=== PATIENT | male | born 1955 | race Caucasian/White ===

== ENCOUNTER 2018-07-30 20:39 | Inpatient (IN) | payer OTHER ==
[~2018-07-30] VITALS: Ht 172.7 cm; Wt 58.2 kg
[2018-07-30] MEDS ORDERED: LOSA50TA88 PO (20:52)
[2018-07-30] MEDS ORDERED: TRAM50TA2 PO (20:52)
[2018-07-30] MEDS ORDERED: GABA-845 PO (20:52)
[2018-07-30] MEDS ORDERED: MIRT1TAB PO (20:52)
--- NOTE | 2018-07-30 23:27 | REPVR ---
EXAM: CT Head Without Contrast EXAM DATE/TIME: 07/30/2018 10:49 PM CLINICAL HISTORY: 62 years old, male; Signs and symptoms; Altered mental status/memory loss; Additional info: Altered, weak TECHNIQUE: Axial computed tomography images of the head/brain without contrast. All CT scans at this facility use at least one of these dose optimization techniques: automated exposure control; mA and/or kV adjustment per patient size (includes targeted exams where dose is matched to clinical indication); or iterative reconstruction. COMPARISON: No relevant prior studies available. FINDINGS: Brain: Normal. No hemorrhage. No significant white matter disease. No edema. Ventricles: Normal. No ventriculomegaly. Bones/joints: Unremarkable. No acute fracture. Sinuses: Visualized sinuses are unremarkable. No acute sinusitis. Mastoid air cells: Visualized mastoid air cells are unremarkable. No mastoid effusion. Soft tissues: Unremarkable. IMPRESSION: No acute intracranial abnormality. Electronically signed by: Kirill Velazco On 07/30/2018 23:27:29 PM
--- NOTE | 2018-07-30 23:28 | REPVR ---
EXAM: XR Chest, 2 Views EXAM DATE/TIME: 07/30/2018 10:17 PM CLINICAL HISTORY: 62 years old, male; Signs and symptoms; Other: Altered mental status TECHNIQUE: XR of the chest, 2 views. COMPARISON: No relevant prior studies available. FINDINGS: Lungs: Bilateral infiltrates in the mid and lower lung zones may represent atelectasis. Clinical correlation to exclude acute infiltrate suggested. Pleural space: Unremarkable. No pleural effusion. No pneumothorax. Heart/Mediastinum: Unremarkable. No cardiomegaly. Bones/joints: Unremarkable. IMPRESSION: Bilateral infiltrates in the mid and lower lung zones may represent atelectasis. Clinical correlation to exclude acute infiltrate suggested. Electronically signed by: Kirill Velazco On 07/30/2018 23:28:04 PM
[2018-07-31] MEDS: NS 1,000 ML IV SCH ×2 (00:52→04:57)
[2018-07-31 00:56] LABS: BASO # 0.1 10^3/uL (0.0-0.2); BASO % 0.5 % (0.0-1.0); EOS # 0.1 10^3/uL (0.0-0.50); EOS % 0.6 % (0.0-3.0); HEMATOCRIT 53.8 % (42.0-52.0); HEMOGLOBIN 18.7 g/dl (13.5-17.5); LYMPH # 1.9 10^3/uL (1.5-4.5); LYMPH % 12.2 % (24.0-44.0); MEAN CORPUSCULAR HEMOGLOBIN 29.1 pg (27.0-33.0); MEAN CORPUSCULAR HGB CONC 34.8 g/dl (32.0-36.5); MEAN CORPUSCULAR VOLUME 83.7 fl (80.0-96.0); MONO # 1.5 10^3/uL (0.0-0.8); MONO % 9.4 % (0.0-5.0); NEUTROPHILS % 76.3 % (36.0-66.0); PLATELET COUNT, AUTOMATED 297 10^3/uL (150-450); RED BLOOD COUNT 6.43 10^6/uL (4.30-6.10); WHITE BLOOD COUNT 15.7 10^3/uL (4.0-10.0)
[2018-07-31 01:39] LABS: ALBUMIN 2.2 GM/DL (3.2-5.2); ALT/SGPT 76 U/L (12-78); BILIRUBIN,DIRECT 27.3 MG/DL (0.0-0.2); BLOOD UREA NITROGEN 56 MG/DL (7-18); CALCIUM LEVEL 11.5 MG/DL (8.8-10.2); CARBON DIOXIDE LEVEL 21 MEQ/L (21-32); CHLORIDE LEVEL 105 MEQ/L (98-107); CK-MB VALUE MASS < 1.0 NG/ML (<3.6); CPK CREATINE PHOSPHOKINASE 46 U/L (39-308); CREATININE FOR GFR 2.05 MG/DL (0.70-1.30); GLUCOSE, FASTING 75 MG/DL (70-100); MB/CK RELATIVE INDEX 2.17 (< OR =4); POTASSIUM SERUM 4.8 MEQ/L (3.5-5.1); SODIUM LEVEL 136 MEQ/L (136-145); TOTAL PROTEIN 6.4 GM/DL (6.4-8.2); TROPONIN I < 0.02 NG/ML (< 0.10)
[2018-07-31 01:57] LABS: BILIRUBIN,TOTAL 29.8 MG/DL (0.2-1.0)
[2018-07-31 02:21] LABS: INR 1.84; PARTIAL THROMBOPLASTIN TIME 36.9 SECONDS (25.4-37.6); PROTHROMBIN TIME 21.6 SECONDS (12.1-14.4)
--- NOTE | 2018-07-31 03:24 | REPVR ---
EXAM: CT Abdomen and Pelvis Without Contrast EXAM DATE/TIME: 07/31/2018 1:53 AM CLINICAL HISTORY: 62 years old, male; AMS, cirrosis, elevated bilirubins TECHNIQUE: Axial computed tomography images of the abdomen and pelvis without contrast. All CT scans at this facility use at least one of these dose optimization techniques: automated exposure control; mA and/or kV adjustment per patient size (includes targeted exams where dose is matched to clinical indication); or iterative reconstruction. Coronal and sagittal reformatted images were created and reviewed. COMPARISON: CR - Chest, 2 view PA, Lat 07/30/2018 10:31:45 PM FINDINGS: Lower thorax: There is atelectasis or consolidation in the right lower lobe. Atelectatic changes are noted in the right middle lobe, lingula, and left lower lobe. No cardiomegaly or pericardial effusion is noted. ABDOMEN: Liver: The liver has a nodular contour, which can be seen with cirrhosis. The liver is enlarged and measures 16.9 cm in craniocaudal dimension at the level of the right midclavicular line. No liver mass is identified with this unenhanced technique. There are several calcified granulomas in the liver. Gallbladder and bile ducts: There is high attenuation material in the gallbladder, which may represent milk of calcium bile. The wall of the gallbladder appears thickened and there is pericholecystic fluid. No intrahepatic or extrahepatic biliary ductal dilation is identified. Pancreas: Unremarkable. No ductal dilation. Spleen: There is several calcified granulomas in the spleen. The spleen is enlarged and measures 14 cm. No splenic mass is identified on this unenhanced technique. Adrenals: There is a 17 mm left adrenal nodule that measures 41 Hounsfield units (image 44 of the axial series 201). The right adrenal gland is normal. Kidneys and ureters: The kidneys are unremarkable. No renal lesion is identified. No calculi are seen in the kidneys or ureters. There is no hydronephrosis or hydroureter. Stomach and bowel: There is thickening of the wall of the ascending colon. No diverticulitis, bowel obstruction, pneumatosis intestinalis, volvulus, or intussusception is noted. Appendix: Normal. There is no evidence for appendicitis. PELVIS: Bladder: There is thickening of the wall of the urinary bladder. No stones are noted in the urinary bladder. Reproductive: There is a punctate calcification in the prostate gland. The seminal vesicles are unremarkable. ABDOMEN and PELVIS: Intraperitoneal space: There is a small amount of ascites in the abdomen and pelvis. No intraperitoneal free air is noted. Bones/joints: The imaged bony structures are intact. There is no suspicious osteolytic or osteoblastic lesion. There are degenerative changes in the lumbar spine. Soft tissues: Unremarkable. Vasculature: The abdominal aorta is normal in caliber. There are moderate to severe atherosclerotic calcifications. There is recanalization of the umbilical vein. The main portal vein is dilated and measures 16 mm in diameter. Lymph nodes: Normal. No enlarged lymph nodes. IMPRESSION: 1. Thickening of the wall of the ascending colon, which may indicate a colitis or may be secondary to the decompressed state of this portion of the bowel. 2. Atelectasis or consolidation in the right lower lobe. 3. Nodular contour of the enlarged liver, which can be seen with cirrhosis. No liver lesion identified. 4. High attenuation material in the gallbladder, which may represent milk of calcium bile and there is gallbladder wall thickening and pericholecystic fluid. 5. Evidence for portal hypertension, with dilation of the main portal vein, splenomegaly, and recannulization of the umbilical vein. 6. 17 mm left adrenal nodule. Consider a [address] 7. Small amount of ascites in the abdomen or pelvis. COMMENT: Consistent with the [employer] Incidental Findings Committee Report (J Am Franny Radiol 2010): Unless the patients specific circumstances suggest otherwise, any liver lesion 0.5 cm or less, any cystic kidney lesion less than 1.0 cm, and/or any adrenal lesion 1.0 cm or less not otherwise characterized in this report as possessing suspicious or indeterminate imaging features is/are highly likely to be benign and do not require follow-up imaging or biopsy. Electronically signed by: Harlan Mcdaniel On 07/31/2018 03:23:49 AM
[2018-07-31] MEDS ORDERED: TIZA-208 PO (03:51)
[2018-07-31] MEDS ORDERED: HYDR-643 PO (03:51)
[2018-07-31] MEDS ORDERED: ONDANSETRON 4MG/2ML VIAL (J2405) IV PRN (04:00)
[2018-07-31] MEDS ORDERED: MORPHINE 4 MG/ML 1ML VIAL/SYRINGE (J2270) IV PRN (04:00)
[2018-07-31] MEDS ORDERED: LORazepam 2 MG/ML VIAL (J2060) IV PRN (04:00)
[2018-07-31] MEDS ORDERED: hydrOXYzine 10 MG TAB PO PRN (04:00)
--- NOTE | 2018-07-31 04:44 | HPEPDOC ---
[facility] Medical History & Physical Date of Admission Jul 31, 2018 Attending Physician: IMTIAZ CLEMENTS MD History and Physical CHIEF COMPLAINT: Altered Mental Status HISTORY OF PRESENT ILLNESS: Patient is a 62 year old male who was brought to the [facility] Emergency Department by his and children due to altered mental status and worsening balance. The patient was confused and sleeping during exam and history was taken from the patients who was present in the room. Mr. Hogan has a history significant for terminal liver cancer. He has been seen and evaluated in [place]. At the time the patient was considering treatment options however, he was ultimately sent home with comfort measures only. The patients states that her children became alarmed when the patient was showing increasing confusion and changes in his balance. They had then made the decision to take Mr. Hogan to the ED for further evaluation. In the ED the patient received a head CT which was normal, a chest X-ray which demonstrated bilateral infiltrates in the mid and lower lung zones likely representing atelectasis, and a CT abdomen and pelvis demonstrating atelectasis or consolidation of the right lower lobe, nodular contour of the liver, high attenuation material in the gallbladder, evidence of portal hypertension with dilation of the main portal vein, splenomegaly, and recannulization of the umbilical vei, a 17 mm left adrenal nodule, and a small amount of ascites. In the ER the patients had stated that the patient was comfort care only and that she would like to meet with hospice and discharge patient home tomorrow morning. Patient received IV fluids in the ER. Hospitalist service was consulted and patient was admitted for comfort measures only PAST MEDICAL HISTORY: 1. Liver Cancer 2. Hypertension 3. Depression/Anxiety PAST SURGICAL HISTORY: None SOCIAL HISTORY: Patient lives at home with his and kids. Patient's states that patient does not smoke or use tobacco products. She denies any history of IV drug abuse in her FAMILY HISTORY: Unknown ALLERGIES: Please see below. REVIEW OF SYSTEMS: Patient was confused and tired. A review of systems was not obtained HOME MEDICATIONS: Please see below. PHYSICAL EXAMINATION: VITAL SIGNS: Temperature 96.6, pulse 86, respiratory rate 19, blood pressure 114/61, pulse oximetry 98% on room air. GENERAL APPEARANCE: Patient is cachetic and older appearing then stated age. He is asleep but arousable to voice. He does appear confused and is noncooperative with exam. HEENT: Atrumatic normocephalic. Eyes are slightly jaundiced. Trachea is midline CARDIOVASCULAR: Normal S1, S2 regular rate and rhythm. No clicks, rubs, or murmurs LUNGS: Clear to auscultation bilaterally with slightly decreased breath sounds in the bases bilaterally. No wheezes, rhonci, rales noted ABDOMEN: Abdomen is firm. Nontender to palpation in all 4 quadrants although patient is altered during exam. Hepatosplenomegaly present. Venous hum present suggestive of portal hypertension. EXTREMITIES: No edema. Full and equal pulses in bilateral upper and lower extremities NEUROLOGICAL: Patient does not follow commands. No facial droop or muscular weakness noted LABORATORY DATA: See below. IMAGING: EXAM: CT Head Without Contrast EXAM DATE/TIME: 07/30/2018 10:49 PM CLINICAL HISTORY: 62 years old, male; Signs and symptoms; Altered mental status/memory loss; Additional info: Altered, weak TECHNIQUE: Axial computed tomography images of the head/brain without contrast. All CT scans at this facility use at least one of these dose optimization techniques: automated exposure control; mA and/or kV adjustment per patient size (includes targeted exams where dose is matched to clinical indication); or iterative reconstruction. COMPARISON: No relevant prior studies available. FINDINGS: Brain: Normal. No hemorrhage. No significant white matter disease. No edema. Ventricles: Normal. No ventriculomegaly. Bones/joints: Unremarkable. No acute fracture. Sinuses: Visualized sinuses are unremarkable. No acute sinusitis. Mastoid air cells: Visualized mastoid air cells are unremarkable. No mastoid effusion. Soft tissues: Unremarkable. IMPRESSION: No acute intracranial abnormality. Electronically signed by: Kirill Velazco On 07/30/2018 23:27:29 PM EXAM: XR Chest, 2 Views EXAM DATE/TIME: 07/30/2018 10:17 PM CLINICAL HISTORY: 62 years old, male; Signs and symptoms; Other: Altered mental status TECHNIQUE: XR of the chest, 2 views. COMPARISON: No relevant prior studies available. FINDINGS: Lungs: Bilateral infiltrates in the mid and lower lung zones may represent atelectasis. Clinical correlation to exclude acute infiltrate suggested. Pleural space: Unremarkable. No pleural effusion. No pneumothorax. Heart/Mediastinum: Unremarkable. No cardiomegaly. Bones/joints: Unremarkable. IMPRESSION: Bilateral infiltrates in the mid and lower lung zones may represent atelectasis. Clinical correlation to exclude acute infiltrate suggested. Electronically signed by: Kirill Velazco On 07/30/2018 23:28:04 PM FINDINGS: Lower thorax: There is atelectasis or consolidation in the right lower lobe. Atelectatic changes are noted in the right middle lobe, lingula, and left lower lobe. No cardiomegaly or pericardial effusion is noted. ABDOMEN: Liver: The liver has a nodular contour, which can be seen with cirrhosis. The liver is enlarged and measures 16.9 cm in craniocaudal dimension at the level of the right midclavicular line. No liver mass is identified with this unenhanced technique. There are several calcified granulomas in the liver. Gallbladder and bile ducts: There is high attenuation material in the gallbladder, which may represent milk of calcium bile. The wall of the gallbladder appears thickened and there is pericholecystic fluid. No intrahepatic or extrahepatic biliary ductal dilation is identified. Pancreas: Unremarkable. No ductal dilation. Spleen: There is several calcified granulomas in the spleen. The spleen is enlarged and measures 14 cm. No splenic mass is identified on this unenhanced technique. Adrenals: There is a 17 mm left adrenal nodule that measures 41 Hounsfield units (image 44 of the axial series 201). The right adrenal gland is normal. Kidneys and ureters: The kidneys are unremarkable. No renal lesion is identified. No calculi are seen in the kidneys or ureters. There is no hydronephrosis or hydroureter. Stomach and bowel: There is thickening of the wall of the ascending colon. No diverticulitis, bowel obstruction, pneumatosis intestinalis, volvulus, or intussusception is noted. Appendix: Normal. There is no evidence for appendicitis. PELVIS: Bladder: There is thickening of the wall of the urinary bladder. No stones are noted in the urinary bladder. Reproductive: There is a punctate calcification in the prostate gland. The seminal vesicles are unremarkable. ABDOMEN and PELVIS: Intraperitoneal space: There is a small amount of ascites in the abdomen and pelvis. No intraperitoneal free air is noted. Bones/joints: The imaged bony structures are intact. There is no suspicious osteolytic or osteoblastic lesion. There are degenerative changes in the lumbar spine. Soft tissues: Unremarkable. Vasculature: The abdominal aorta is normal in caliber. There are moderate to severe atherosclerotic calcifications. There is recanalization of the umbilical vein. The main portal vein is dilated and measures 16 mm in diameter. Lymph nodes: Normal. No enlarged lymph nodes. IMPRESSION: 1. Thickening of the wall of the ascending colon, which may indicate a colitis or may be secondary to the decompressed state of this portion of the bowel. 2. Atelectasis or consolidation in the right lower lobe. 3. Nodular contour of the enlarged liver, which can be seen with cirrhosis. No liver lesion identified. 4. High attenuation material in the gallbladder, which may represent milk of calcium bile and there is gallbladder wall thickening and pericholecystic fluid. 5. Evidence for portal hypertension, with dilation of the main portal vein, splenomegaly, and recannulization of the umbilical vein. 6. 17 mm left adrenal nodule. Consider a [address] 7. Small amount of ascites in the abdomen or pelvis. COMMENT: Consistent with the [place] [employer] Incidental Findings Committee Report (J Am Franny Radiol 2010): Unless the patients specific circumstances suggest otherwise, any liver lesion 0.5 cm or less, any cystic kidney lesion less than 1.0 cm, and/or any adrenal lesion 1.0 cm or less not otherwise characterized in this report as possessing suspicious or indeterminate imaging features is/are highly likely to be benign and do not require follow-up imaging or biopsy. Electronically signed by: Harlan Mcdaniel On 07/31/2018 03:23:49 AM MICROBIOLOGY: Please see below. ASSESSMENT and PLAN 1. Terminal Liver Cancer -Patient has been diagnosed with liver cancer. He has been seen and evaluated by specialists in [place]. Patient was recently made comfort measures only. Plan to continue with comfort care only. Patients has signed a MOLST form. -Comfort care only, IV morphine, IV ativan, IV zofran -Hospice consult made -Consider discharge home with comfort measures only 2. Hypertension -Continue home medications 3. Muscles spasms/cramps -Continue home medications (Tizanidine) Vital Signs Vital Signs Date Time Temp Pulse Resp B/P (MAP) Pulse Ox O2 Delivery O2 Flow Rate FiO2 07/31/18 02:00 83 20 149/66 (93) 99 07/30/18 21:00 96.6 Laboratory Data Labs 24H Laboratory Tests 2 07/31/18 00:46: Immature Granulocyte % (Auto) 1.0, White Blood Count 15.7H, Red Blood Count 6.43H, Hemoglobin 18.7H, Hematocrit 53.8H, Mean Corpuscular Volume 83.7, Mean Corpuscular Hemoglobin 29.1, Mean Corpuscular Hemoglobin Concent 34.8, Red Cell Distribution Width 26.4H, Platelet Count 297, Neutrophils (%) (Auto) 76.3H, Lymphocytes (%) (Auto) 12.2L, Monocytes (%) (Auto) 9.4H, Eosinophils (%) (Auto) 0.6, Basophils (%) (Auto) 0.5, Neutrophils # (Auto) 12.0H, Lymphocytes # (Auto) 1.9, Monocytes # (Auto) 1.5H, Eosinophils # (Auto) 0.1, Basophils # (Auto) 0.1, Nucleated Red Blood Cells % (auto) 0.1H, Anion Gap 10, Glomerular Filtration Rate 35.0L, Calcium Level 11.5H, Aspartate Amino Transf (AST/SGOT) 310H, Alanine Aminotransferase (ALT/SGPT) 76, Alkaline Phosphatase 255H, Total Bilirubin 29.8*H, Direct Bilirubin 27.3H, Ammonia 39H, Total Creatine Kinase 46, Creatine Kinase MB < 1.0, Creatine Kinase MB Relative Index 2.17, Troponin I < 0.02, Total Protein 6.4, Albumin 2.2L, Albumin/Globulin Ratio 0.52L, Thyroid Stimulating Hormone (TSH) 1.820 07/31/18 00:47: Urine Color MILENA, Urine Appearance HAZY, Urine pH 5.0, Urine Specific [place] 1.014, Urine Protein NEGATIVE, Urine Glucose (UA) NEGATIVE, Urine Ketones NEGATIVE, Urine Blood NEGATIVE, Urine Nitrite NEGATIVE, Urine Bilirubin 2+H, Urine Urobilinogen 4.0H, Urine Leukocyte Esterase NEGATIVE, Urine WBC (Auto) 4H, Urine RBC (Auto) 1, Urine Hyaline Casts (Auto) 23, Urine Bacteria (Auto) 1+H, Urine Squamous Epithelial Cells 0, Urine Transitional Epithelial Cells <1, Urine Amorphous Sediment SMALLH, Urine Mucus (Auto) SMALL, Urine Sperm (Auto) 07/31/18 01:48: Prothrombin Time 21.6H, Prothromb Time International Ratio 1.84, Activated Partial Thromboplast Time 36.9 CBC/BMP Laboratory Tests 07/31/18 00:46 Red Blood Count 6.43 H, Mean Corpuscular Volume 83.7, Mean Corpuscular Hemoglobin 29.1, Mean Corpuscular Hemoglobin Concent 34.8, Red Cell Distribution Width 26.4 H, Neutrophils (%) (Auto) 76.3 H, Lymphocytes (%) (Auto) 12.2 L, Monocytes (%) (Auto) 9.4 H, Eosinophils (%) (Auto) 0.6, Basophils (%) (Auto) 0.5, Neutrophils # (Auto) 12.0 H, Lymphocytes # (Auto) 1.9, Monocytes # (Auto) 1.5 H, Eosinophils # (Auto) 0.1, Basophils # (Auto) 0.1 Microbiology Microbiology 07/31/18 Blood Culture, Received Pending 07/31/18 Blood Culture, Received Pending Home Medications Scheduled Gabapentin (Gabapentin) 400 Mg Cap, 400 MG PO TID Mirtazapine (Mirtazapine) 7.5 Mg Tab, 7.5 MG PO DAILY Scheduled PRN Hydroxyzine HCl (Hydroxyzine HCl) 10 Mg Tab, 10 MG PO TID PRN for ANXIETY Hyoscyamine Sulfate (Hyoscyamine Sulfate) 0.125 Mg Sub, 0.125 MG PO Q4HP PRN for TERMINAL SECRETIONS Use sublingually if unable to swallow Tizanidine Hydrochloride (Tizanidine Hydrochloride) 4 Mg Tab, 4 MG PO QHS PRN for MUSCLE SPASMS Tramadol HCl (Tramadol HCl) 50 Mg Tab, 100 MG PO Q6H PRN for PAIN Allergies Coded Allergies: No Known Allergies (Unverified , 07/30/18) GME ATTESTATION GME ATTESTATION My faculty preceptor for this patient encounter was physically present during the encounter and was fully available. All aspects of the patient interview, examination, medical decision making process, and medical care plan development were reviewed and approved by the faculty preceptor. The faculty preceptor is aware and concurs with the plan as stated in the body of this note and will attest to such by his/her cosignature. JAN GILMORE DO Jul 31, 2018 04:44 DENA JULIEN MD Jul 31, 2018 21:49
[2018-07-31 05:45] VITALS: BP 108/58
[2018-07-31] MEDS ORDERED: LOSARTAN 50 MG TAB PO SCH (09:00)
[2018-07-31] MEDS ORDERED: MIRTAZAPINE 7.5MG PER 1/2 TABLET PO SCH (09:00)
[2018-07-31] MEDS ORDERED: GABAPENTIN 400 MG CAP PO SCH (09:00)
--- NOTE | 2018-07-31 09:24 | ECGEPIP ---
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
--- NOTE | 2018-07-31 09:33 | ECGEPIP ---
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
[2018-07-31] MEDS ORDERED: MORP20SO3 PO (11:37)
[2018-07-31] MEDS ORDERED: LORA0.5T11 PO (11:37)
[2018-07-31] MEDS ORDERED: HYOS125TA PO (11:37)
--- NOTE | 2018-07-31 15:33 | DS.PDOC ---
Discharge Summary General Date of Admission Jul 31, 2018 at 04:04 Date of Discharge 07/31/18 Attending Physician: IMTIAZ CLEMENTS MD Discharge Summary PROCEDURES PERFORMED DURING STAY: None. ADMITTING/DISCHARGE DIAGNOSES: 1. 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 Recent hospitalization at [facility] 3. Obstructive jaundice 4. History of hypertension 5. History of depression/anxiety COMPLICATIONS/CHIEF COMPLAINT: Generalized weakness HISTORY OF PRESENT ILLNESS/HOSPITAL COURSE: This is a 62-year-old male presents with generalized weakness and noted to have known liver/pancreatic malignancy, and has notable obstructive jaundice with a bilirubin of 30. Patient presents to the ED, and on admission, subsequently wished for comfort measures only. MOLST form had been filled out. I have spoken to the patient as well as the spouse at bedside, and they both would like to go home on hospice. Case management's has arranged for hospice to evaluate the patient at home. Patient will be discharged today as per patient and family wishes. They state they will follow up closely with hospice, as well as her primary care physician as needed. I have answered all the questions to satisfaction. DISCHARGE MEDICATIONS: Please see below. ALLERGIES: Please see below. PHYSICAL EXAMINATION ON DISCHARGE: Vitals: (see below) General: No acute distress, laying comfortably in bed. Jaundiced. Cachectic. HEENT: Moist mucous membranes. Neck: No JVD or lymphadenopathy Cardiac: RRR, No murmurs Pulm: Clear to auscultation b/l. No wheezing, rhonchi Abd: NT/distended. + BS Ext: No edema or cyanosis LABORATORY DATA: Please see below. PROGNOSIS: Guarded ACTIVITY: As tolerated. DIET: As tolerated DISCHARGE PLAN/DISPOSITION: Home with hospice DISCHARGE INSTRUCTIONS: 1. Follow-up with hospice. Follow-up with PCP as needed. DISCHARGE CONDITION: Stable. TIME SPENT ON DISCHARGE: Greater than 30 minutes. Vital Signs/I&Os Vital Signs Date Time Temp Pulse Resp B/P (MAP) Pulse Ox O2 Delivery O2 Flow Rate FiO2 07/31/18 05:45 97.6 86 20 108/58 (75) 94 Laboratory Data Labs 24H Laboratory Tests 2 07/31/18 00:46: Immature Granulocyte % (Auto) 1.0, White Blood Count 15.7H, Red Blood Count 6.43H, Hemoglobin 18.7H, Hematocrit 53.8H, Mean Corpuscular Volume 83.7, Mean Corpuscular Hemoglobin 29.1, Mean Corpuscular Hemoglobin Concent 34.8, Red Cell Distribution Width 26.4H, Platelet Count 297, Neutrophils (%) (Auto) 76.3H, Lymphocytes (%) (Auto) 12.2L, Monocytes (%) (Auto) 9.4H, Eosinophils (%) (Auto) 0.6, Basophils (%) (Auto) 0.5, Neutrophils # (Auto) 12.0H, Lymphocytes # (Auto) 1.9, Monocytes # (Auto) 1.5H, Eosinophils # (Auto) 0.1, Basophils # (Auto) 0.1, Nucleated Red Blood Cells % (auto) 0.1H, Anion Gap 10, Glomerular Filtration Rate 35.0L, Calcium Level 11.5H, Aspartate Amino Transf (AST/SGOT) 310H, Alanine Aminotransferase (ALT/SGPT) 76, Alkaline Phosphatase 255H, Total Bilirubin 29.8*H, Direct Bilirubin 27.3H, Ammonia 39H, Total Creatine Kinase 46, Creatine Kinase MB < 1.0, Creatine Kinase MB Relative Index 2.17, Troponin I < 0.02, Total Protein 6.4, Albumin 2.2L, Albumin/Globulin Ratio 0.52L, Thyroid Stimulating Hormone (TSH) 1.820 07/31/18 00:47: Urine Color MILENA, Urine Appearance HAZY, Urine pH 5.0, Urine Specific [place] 1.014, Urine Protein NEGATIVE, Urine Glucose (UA) NEGATIVE, Urine Ketones NEGATIVE, Urine Blood NEGATIVE, Urine Nitrite NEGATIVE, Urine Bilirubin 2+H, Urine Urobilinogen 4.0H, Urine Leukocyte Esterase NEGATIVE, Urine WBC (Auto) 4H, Urine RBC (Auto) 1, Urine Hyaline Casts (Auto) 23, Urine Bacteria (Auto) 1+H, Urine Squamous Epithelial Cells 0, Urine Transitional Epithelial Cells <1, Urine Amorphous Sediment SMALLH, Urine Mucus (Auto) SMALL, Urine Sperm (Auto) 07/31/18 01:48: Prothrombin Time 21.6H, Prothromb Time International Ratio 1.84, Activated Partial Thromboplast Time 36.9 CBC/BMP Laboratory Tests 07/31/18 00:46 Red Blood Count 6.43 H, Mean Corpuscular Volume 83.7, Mean Corpuscular Hemoglobin 29.1, Mean Corpuscular Hemoglobin Concent 34.8, Red Cell Distribution Width 26.4 H, Neutrophils (%) (Auto) 76.3 H, Lymphocytes (%) (Auto) 12.2 L, Monocytes (%) (Auto) 9.4 H, Eosinophils (%) (Auto) 0.6, Basophils (%) (Auto) 0.5, Neutrophils # (Auto) 12.0 H, Lymphocytes # (Auto) 1.9, Monocytes # (Auto) 1.5 H, Eosinophils # (Auto) 0.1, Basophils # (Auto) 0.1 Microbiology Microbiology 07/31/18 Blood Culture, Received Pending 07/31/18 Blood Culture, Received Pending Discharge Medications Scheduled Gabapentin (Gabapentin) 400 Mg Cap, 400 MG PO TID, (Reported) Mirtazapine (Mirtazapine) 7.5 Mg Tab, 7.5 MG PO DAILY, (Reported) Scheduled PRN Hydroxyzine HCl (Hydroxyzine HCl) 10 Mg Tab, 10 MG PO TID PRN for ANXIETY, (Reported) Hyoscyamine Sulfate (Hyoscyamine Sulfate) 0.125 Mg Sub, 0.125 MG PO Q4HP PRN for TERMINAL SECRETIONS Use sublingually if unable to swallow Tizanidine Hydrochloride (Tizanidine Hydrochloride) 4 Mg Tab, 4 MG PO QHS PRN for MUSCLE SPASMS, (Reported) Tramadol HCl (Tramadol HCl) 50 Mg Tab, 100 MG PO Q6H PRN for PAIN, (Reported) Allergies Coded Allergies: No Known Allergies (Unverified , 07/30/18) IMTIAZ CLEMENTS MD Jul 31, 2018 15:32
== END 2018-07-31 11:49 | disposition hospice, home (50) | DRG 862 ==
LOC: EDBD 20:39 → M ED 20:39 → M ED INP 07-31 04:04
PROVIDERS: ADMIT Hospitalist; ATTEND Internal Medicine
DX: Z51.5 Encounter for palliative care (principal); K83.1 Obstruction of bile duct; C22.8 Malignant neoplasm of liver, primary, unspecified as to type; K76.6 Portal hypertension; I10 Essential (primary) hypertension; F32.9 Major depressive disorder, single episode, unspecified; M62.838 Other muscle spasm; F41.9 Anxiety disorder, unspecified; J98.11 Atelectasis; Z66 Do not resuscitate; Z79.891 Long term (current) use of opiate analgesic; Z79.899 Other long term (current) drug therapy